=== PATIENT | female | born 1970 | race Caucasian/White ===

== ENCOUNTER 2021-09-14 07:29 | Emergency (ER) | payer BC, OTHER ==
[2021-09-14] MEDS ORDERED: Ketorolac Tromethamine 30 MG/ML VIAL ONE (07:46)
[2021-09-14] MEDS ORDERED: Morphine 4 MG/ML VIAL ONE (10:56)
[2021-09-14] MEDS ORDERED: Ondansetron PF 4 MG/2 ML Vial ONE (10:56)
== END 2021-09-14 12:55 | disposition home or self-care (01) ==
LOC: CSHERS 07:29
DX: S32.019A Unspecified fracture of first lumbar vertebra, initial encounter for closed fracture (principal); S70.01XA Contusion of right hip, initial encounter; V48.5XXA Car driver injured in noncollision transport accident in traffic accident, initial encounter
CPT/HCPCS: 72100; 72131; 96374; 96375; G0390; J1885; J2270; J2405

== ENCOUNTER 2023-02-05 10:12 | Outpatient (CLI) | payer BC | END 2023-02-05 10:13 | disposition home or self-care (01) | LOC: CSHMAMMO 10:12 | PROVIDERS: ATTEND Physician Assistant | DX: Z12.31 Encounter for screening mammogram for malignant neoplasm of breast (principal); R92.1 Mammographic calcification found on diagnostic imaging of breast; Z91.89 Other specified personal risk factors, not elsewhere classified | CPT/HCPCS: 77063; 77067 ==